=== PATIENT | female | born 1965 | race Two or more races ===

== ENCOUNTER 2018-08-20 02:28 | Emergency (ER) | payer OTHER ==
--- NOTE | 2018-08-20 03:10 | PDOC ---
Attending Attestation - Resident Resident Name: Mague Rocha - ED Attending Attestation I have performed the following: I have examined & evaluated the patient, The case was reviewed & discussed with the resident, I agree w/resident's findings & plan - HPI HPI: 08/20/18 19:36 Pt comes with body pain and bilat arm pain and feeling generalized weakness - Physicial Exam PE: 08/20/18 05:56 Agree with resident exam - Medical Decision Making 08/20/18 04:42 Chem is normal EKG normal Trop and CBC pending. C spine CT pending. Pt treated with NSAID and mm relaxants. We will reeval. 08/20/18 05:54 Labs are all normal CT cspine still pending. CT seems normal to me; however awaiting official result 08/20/18 06:23 Patient Name: DEVORAH JAUREGUI THIS IS A PRELIMINARY REPORT FROM [facility]ESS MAINTENANCE TECHNICIAN DATE OF SERVICE: 2018-08-20 05:09:15 IMAGES: 235 EXAM: CERVICAL SPINE CT W/O CONTR HISTORY: Neck pain COMPARISON: None. FINDINGS: There is no fracture, subluxation, prevertebral soft tissue swelling. There is a small disc bulge at the C3-4 level without significant mass effect. There is a small to moderate size central herniation at C4-5 which mildly narrows the central canal. There is a moderate-sized bulging disc osteophyte C5-6 which mildly narrow the central canal, right lateral recess and right neural foramen. There is a small to moderate sized central herniated disc osteophyte complex at C6-7 which mildly narrows the central canal. There is a tiny right central herniated disc ossified complex at C7/T1 without mass effect. The lung apices are clear. IMPRESSION: Multiple degenerative changes as described above. Pt signed out to the day team Heart Score/ECG Review - ECG Intrepretation Rhythm: Regular Rhythm - [place]: Normal - P and KS Prominent R with upright T in V1 (true posterior NC): No Delta Wave(s) Present: No WPW: No - QRS Poor R Wave Progression: No Q Wave Present: No - ST and T Early Repolarization: No Non Specific ST-T Wave changes: No Flattened T Waves: No Prolonged Q-T Interval: No - ECG Impressions Normal ECG: Yes Non-specific ST Elevation: No Ischemic Changes: No Bradycardia: No Torsades jabier Pointes: No WPW: No
[2018-08-20 03:11] VITALS: BMI 31.1
--- NOTE | 2018-08-20 03:23 | PDOC ---
History of Present Illness - General Chief Complaint: Back Pain Stated Complaint: BACK PAIN/NUMBNESS Time Seen by Provider: 08/20/18 03:05 History Source: Patient Exam Limitations: Language Barrier - History of Present Illness Initial Comments: 08/20/18 03:20 Pt is a 52yo F with no significant PMH presenting to ED with complaints of upper back pain, bilateral paresthesias x7 months. Pt states that she has been feeling a tightness in her upper back and neck with tingling sensation in both of her arms and legs which is on and off. She describes the tingling sensation as "balls in the muscles". Denies numbness, injuries, weakness, slurred speech, syncope, head injuries. She has seen doctors in the past and was given Tylenol but it does not help. She went to see a doctor yesterday and had labs and xray done. She was told to come to the hospital if she was worried about anything. PMD: Alexey PMH: none PSH: none Meds: Tylenol Social: denies Allergies: nkda Past History - Past Medical History Allergies/Adverse Reactions: Allergies Allergy/AdvReac Type Severity Reaction Status Date / Time No Known Allergies Allergy Verified 01/18/15 21:18 Home Medications: Ambulatory Orders Esomeprazole Mag Trihydrate [Nexium] 40 mg PO DAILY #30 capsule 01/19/15 Ibuprofen 600 mg PO TID #15 tablet 08/20/18 Methocarbamol [Robaxin -] 750 mg PO BID #10 tablet 08/20/18 - Surgical History Cholecystectomy: Yes - Immunization History Immunization Up to Date: Yes - Suicide/Smoking/Psychosocial Hx Smoking History: Never smoked Have you smoked in the past 12 months: No Information on smoking cessation initiated: No Hx Alcohol Use: No Drug/Substance Use Hx: No Substance Use Type: None Review of Systems - Review of Systems Constitutional: Yes: Loss of Appetite, Weakness. No: Chills, Fever HEENTM: Yes: Other (dry mouth). No: Eye Pain, Blurred Vision, Ear Pain, Nose Pain, Nose Congestion Respiratory: No: Cough, Shortness of Breath Cardiac (ROS): Yes: Palpitations. No: Chest Pain, Edema, Lightheadedness, Syncope, Chest Tightness ABD/GI: No: Constipated, Diarrhea, Nausea, Vomiting, Abdominal cramping : No: Burning, Dysuria Musculoskeletal: Yes: See HPI, Back Pain, Muscle Pain, Neck Pain. No: Joint Pain, Muscle Weakness Integumentary: No: Symptoms Reported Neurological: Yes: See HPI, Paresthesia, Tingling. No: Headache, Numbness, Tremors, Weakness, Dizziness *Physical Exam - Vital Signs Last Vital Signs Temp Pulse Resp BP Pulse Ox 98.3 F 83 18 124/93 98 08/20/18 02:35 08/20/18 02:35 08/20/18 02:35 08/20/18 02:35 08/20/18 02:35 - Physical Exam General Appearance: Yes: Nourished, Appropriately Dressed. No: Apparent Distress HEENT: positive: EOMI, KOFI, Pharynx Normal Neck: positive: Trachea midline, Supple. negative: Lymphadenopathy (R), Lymphadenopathy (L) Respiratory/Chest: positive: Lungs Clear, Normal Breath Sounds. negative: Crackles, Rhonchi, Stridor, Wheezing Cardiovascular: positive: Regular Rhythm, Regular Rate, S1, S2. negative: Edema , JVD, Murmur Vascular Pulses: Carotid (R): 2+, Carotid (L): 2+, Dorsalis-Pedis (R): 2+, Doralis-Pedis (L): 2+ Gastrointestinal/Abdominal: positive: Normal Bowel Sounds, Soft. negative: Distended, Guarding, Rebound, Tenderness Musculoskeletal: positive: Other (paravertebral tenderness at mid back. No pain in arms with palpation of shoulders or cervical spine. ). negative: CVA Tenderness, Decreased Range of Motion, Muscle Spasm, Vertebral Tenderness Extremity: positive: Normal Capillary Refill, Pelvis Stable. negative: Coldness , Pedal Edema, Swelling, Calf Tenderness Integumentary: positive: Normal Color, Dry, Warm Neurologic: positive: manager marketing communications II-XII NML intact, Fully Oriented, Alert, Normal Mood/ Affect, Normal Response, Motor Strength 5/5. negative: Facial Droop, Numbness, Sensory Deficit Moderate Sedation - Procedure Monitoring Vital Signs: Procedure Monitoring Vital Signs Temperature 98.3 F 08/20/18 02:35 Pulse Rate 83 08/20/18 02:35 Respiratory Rate 18 08/20/18 02:35 Blood Pressure 124/93 08/20/18 02:35 O2 Sat by Pulse Oximetry (%) 98 08/20/18 02:35 ED Treatment Course - LABORATORY CBC & Chemistry Diagram: 08/20/18 03:49 08/20/18 03:49 Medical Decision Making - Medical Decision Making 08/20/18 07:17 Pt is a 52yo F with no significant PMH presenting to ED with complaints of upper back pain, bilateral paresthesias x7 months. Pt states that she has been feeling a tightness in her upper back and neck with tingling sensation in both of her arms and legs which is on and off. She describes the tingling sensation as "balls in the muscles". Denies numbness, injuries, weakness, slurred speech, syncope, head injuries. She has seen doctors in the past and was given Tylenol but it does not help. She went to see a doctor yesterday and had labs and xray done. She was told to come to the hospital if she was worried about anythi Vitals: wnl PE: benign. strength 5/5, no numbness or focal neurological deficits High suspicion for disc herniation/radiculopathy. CT c-spine Will order labs, trop, TSH and EKG for palpitations that pt feels occasionally. -ibuprofen and robaxin Labs significant for elevated TSH (5). CT: small disc bulge at C3-4 witout mass effect. Small to moderate central herniation at c4-5. moderate sized bulging disc osteophyte c5-6 mildly narrows central canal. at c6-7. Pt reports feeling better after medications. Pt has PMD, can follow up Thyroid levels and CT results. Results of labs and CT given to pt as well as referral to neurology. Pt is hemodynamcially stable. can be dc home 08/20/18 07:21 *DC/Admit/Observation/Transfer Diagnosis at time of Disposition: Back pain Qualifiers: Back pain location: thoracic back pain Chronicity: chronic Back pain laterality : bilateral Qualified Code(s): M54.6 - Pain in thoracic spine Hypothyroidism Qualifiers: Hypothyroidism type: unspecified Qualified Code(s): E03.9 - Hypothyroidism, unspecified - Discharge Dispostion Disposition: HOME Condition at time of disposition: Improved Decision to Admit order: No - Prescriptions Prescriptions: Ibuprofen 600 mg PO TID #15 tablet Methocarbamol [Robaxin -] 750 mg PO BID #10 tablet - Referrals - Patient Instructions Printed Discharge Instructions: DI for Hypothyroidism, DI for Thoracic Back Pain Additional Instructions: Fue atendido en la brent de emergencias por dolor de espalda, hormigueo en brazos y piernas y sensacin de fatiga. El anlisis de jude muestra que puede tener niveles bajos de tiroides. La tomografa computarizada muestra que tiene marbin hernia de disco que est causando algn estrechamiento en shell columna vertebral. [place] probablemente explica por qu tiene el dolor en la espalda y en los brazos. Le recomiendo que contine viendo a shell mdico en en [place] y que le revisen los niveles de tiroides y, si es necesario, consulte a un neurlogo. [place] puede explicar por qu se siente cansado y tiene la boca seca. Puede hacer marbin iain con el Dr. Howard para empeorar el dolor de espalda o el dolor / entumecimiento del brazo. Se envi marbin receta de Robaxin e Ibuprofeno a shell farmacia. Por favor tome segn las indicaciones. Asegrese de no conducir inmediatamente despus de jany Robaxin. No lo tome con alcohol. Regrese a la brent de emergencias si el dolor empeora, no puede levantar los brazos o las piernas, aumenta el entumecimiento o si aparece algn sntoma nuevo. Cindy You were seen in the emergency room for back pain, tingling in arms and legs and feelings of fatigue. The blood work shows that you may have low thyroid levels. The CT scan shows that you have disc herniation that is causing some narrowing in your spine. This probably explains why you have the pain in your back and down your arms. I recommend that you continue to see your doctor on in [place] and have your Thyroid levels checked and for a neurologist referral if needed. This can explain why you feel tired and have dry mouth. You can make an appointment with Dr. Hoawrd for worsening back pain or arm pain/numbness. A prescription for Robaxin and Ibuprofen were sent to your pharmacy. Please take as directed. Make sure not to drive immediately after taking Robaxin. Do not take with alcohol. Come back to the emergency room if pain gets worse, you are unable to lift your arms or legs, the numbness increases or if any new concerning symptom develops. Thank you Print Language: FRISIAN - Post Discharge Activity
[2018-08-20] MEDS ORDERED: IBUPROFEN 600 MG TABLET (FP) PO ONE ×2 (03:36→03:54)
[2018-08-20] MEDS ORDERED: METHOCARBAMOL 500 MG TABLET PO ONE (04:01)
[2018-08-20 04:33] LABS: ALBUMIN 3.6 g/dl (3.4-5.0); ALK PHOS 114 U/L (45-117); ANION GAP 7 MMOL/L (8-16); BILIRUBIN,TOTAL 0.3 mg/dL (0.2-1); BLOOD UREA NITROGEN 16 mg/dL (7-18); CALCIUM 8.4 mg/dL (8.5-10.1); CHLORIDE 107 mmol/L (98-107); CO2 25 mmol/L (21-32); CREATININE 0.8 mg/dL (0.55-1.3); GLUCOSE,RANDOM 139 mg/dL (74-106); POTASSIUM 3.6 mmol/L (3.5-5.1); SGOT/AST 23 U/L (15-37); SGPT/ALT 53 U/L (13-61); SODIUM 139 mmol/L (136-145); TOT PROT 7.2 g/dl (6.4-8.2)
[2018-08-20 05:13] LABS: BASO % 0.8 % (0-2.0); EOS % 3.4 % (0-4.5); HEMATOCRIT 37.8 % (32.4-45.2); HEMOGLOBIN 13.5 GM/dL (10.7-15.3); LYMPH % 28.8 % (8-40); MCH 31.2 pg (25.7-33.7); MCHC 35.7 g/dl (32.0-36.0); MEAN CELL VOLUME 87.5 fl (80-96); MEAN PLT VOLUME 8.1 fl (7.5-11.1); MONO % 7.5 % (3.8-10.2); NEUT % 59.5 % (42.8-82.8); PLATELET COUNT 300 K/MM3 (134-434); RBC 4.32 M/mm3 (3.60-5.2); WHITE BLOOD COUNT 8.5 K/mm3 (4.0-10.0)
[2018-08-20] MEDS ORDERED: METHOCARBAMOL 500 MG TABLET ONE (06:13)
[2018-08-20 07:15] VITALS: BP 122/75; PULSE 71; TEMP 98.2
--- NOTE | 2018-08-20 11:02 | EKG ---
Test Reason : Blood Pressure : / mmHG Vent. Rate : 074 BPM Atrial Rate : 074 BPM P-R Int : 152 ms QRS Dur : 094 ms QT Int : 406 ms P-R-T Axes : 032 007 034 degrees QTc Int : 450 ms NORMAL SINUS RHYTHM NORMAL ECG WHEN COMPARED WITH ECG OF 19-AUG-2018 13:22, NO SIGNIFICANT CHANGE WAS FOUND Confirmed by STU GONZALEZ MD ([id number]) on 08/20/2018 11:02:40 AM Referred By: Confirmed By:STU GONZALEZ MD
== END 2018-08-20 07:15 | disposition home or self-care (01) ==
LOC: JER 02:28
DX: M50.21 Other cervical disc displacement, high cervical region (principal); E03.9 Hypothyroidism, unspecified; M54.6 Pain in thoracic spine
CPT/HCPCS: 36415; 72125-TC; 80053; 83735; 84443; 84484; 85025; 93005; 93010; 99282-25

== ENCOUNTER 2023-12-14 00:50 | Emergency (ER) | payer OTHER ==
[2023-12-14 00:59] VITALS: BP 142/93; PULSE 86; RESP 18; TEMP 98.5; BMI 32.0
[2023-12-14] MEDS ORDERED: predniSONE 20 MG TABLET (UD) ONE (01:52)
[2023-12-14] MEDS: predniSONE 20 MG TABLET (UD) PO ONE (01:53)
== END 2023-12-14 02:27 | disposition home or self-care (01) ==
LOC: JER 00:50
DX: R50.9 Fever, unspecified (principal); J02.9 Acute pharyngitis, unspecified
CPT/HCPCS: 99283-25

== ENCOUNTER 2024-04-16 04:32 | Emergency (ER) | payer OTHER ==
[2024-04-16 04:36] VITALS: BP 152/95; PULSE 83; RESP 17; TEMP 97.8; BMI 30.7
[2024-04-16] MEDS ORDERED: TETRACAINE 0.5% OPHTH SOLN 2 ML BOTTLE ONE (05:15)
[2024-04-16] MEDS: SODIUM CHLORIDE FOR INHALATION 3 ML VIAL.NEB IH ONE (05:22)
[2024-04-16] MEDS: DEXAMETHASONE SOD PHOSPHATE 10 MG/1 ML VIAL IM ONE (05:22)
[2024-04-16] MEDS: TETRACAINE 0.5% HCL 0.6ML DROPPER.BOTTLE OS ONE (05:22)
== END 2024-04-16 06:41 | disposition home or self-care (01) ==
LOC: JER 04:32
PROC: 3E023GC Introduction of Other Therapeutic Substance into Muscle, Percutaneous Approach (ICD-10-PCS; principal; 2024-04-16)
DX: T59.91XA Toxic effect of unspecified gases, fumes and vapors, accidental (unintentional), initial encounter (principal); R09.89 Other specified symptoms and signs involving the circulatory and respiratory systems; H57.89 Other specified disorders of eye and adnexa; J68.9 Unspecified respiratory condition due to chemicals, gases, fumes and vapors
CPT/HCPCS: 71046-TC-FY; 99284-25; J1100